=== PATIENT | female | born 1940 | race Caucasian/White ===

== ENCOUNTER 2023-06-09 18:58 | Emergency (ER) | payer MEDICARE, MEDICAID ==
[2023-06-09 20:00] LABS: BASOPHILS PERCENT AUTO 0.2 % (0.1-1.3); EOSINOPHILS ABSOLUTE AUTO 0.13 K/uL (0.00-0.40); EOSINOPHILS PERCENT AUTO 2.6 % (0.0-5.4); HEMATOCRIT 35.1 % (34.3-46.0); HEMOGLOBIN 11.2 g/dL (11.2-15.5); IMMATURE GRAN PERCENT AUTO 0.2 % (0.0-0.7); LYMPHOCYTES ABSOLUTE AUTO 1.92 K/uL (0.8-3.3); LYMPHOCYTES PERCENT AUTO 39.1 % (11.4-47.7); MEAN CORPUSCULAR HEMOGLOBIN 29.2 pg (31.6-35.5); MEAN CORPUSCULAR HGB CONC 31.9 g/dL (31.6-35.5); MEAN CORPUSCULAR VOLUME 91.4 fL (81.4-99.0); MONOCYTES ABSOLUTE AUTO 0.49 K/uL (0.20-0.90); NEUTROPHILS ABSOLUTE AUTO 2.35 K/uL (1.0-7.6); NEUTROPHILS PERCENT AUTO 47.9 % (40.0-78.1); PLATELET COUNT,PLT 268 K/uL (130-375); RED BLOOD CELL COUNT 3.84 M/uL (3.77-5.24); WHITE BLOOD CELL COUNT,WBC 4.9 K/uL (3.2-11.0)
[2023-06-09 20:01] LABS: BASOPHILS ABSOLUTE AUTO 0.01 K/uL (0.00-0.10); IMMATURE GRAN ABSOLUTE AUTO 0.01 K/uL (0.00-0.23)
[2023-06-09 20:16] LABS: CALCIUM 9.3 mg/dL (8.5-10.1); EST CRCL DRUG DOSING (CG) 39.9 mL/min; POTASSIUM,K 4.7 mmol/L (3.6-5.2)
[2023-06-09 20:18] LABS: ANION GAP 12.7 mmol/L (5.0-14.0)
== END 2023-06-09 21:32 ==
LOC: JP.ED 18:58
DX: I10 Essential (primary) hypertension (principal); Z88.6 Allergy status to analgesic agent; Z91.018 Allergy to other foods; Z88.8 Allergy status to other drugs, medicaments and biological substances; Z91.041 Radiographic dye allergy status; Z79.899 Other long term (current) drug therapy
CPT/HCPCS: 36415; 80048; 85025; 99285